=== PATIENT | male | born 1950 | race Caucasian/White ===

== ENCOUNTER 2017-06-24 06:03 | Observation (INO) | payer OTHER ==
[2017-06-24] MEDS ORDERED: Heparin 10,000 UNITS/1 ML VIAL ONE (06:30)
[2017-06-24] MEDS ORDERED: Midazolam HCl 2 mg/2 ml Vial ONE (07:09)
[2017-06-24] MEDS ORDERED: Fentanyl 100 MCG/2 ML VIAL ONE (07:09)
[2017-06-24] MEDS ORDERED: Nitroglycerin 100MG/250ML BOT 250 ML ONE (07:29)
[2017-06-24] MEDS ORDERED: Allopurinol 100 MG TAB PO SCH ×2 (09:00→21:00)
[2017-06-24] MEDS ORDERED: Allopurinol 300 MG TAB PO SCH (09:00)
[2017-06-24] MEDS ORDERED: Gabapentin 300 MG CAP PO SCH (09:00)
[2017-06-24] MEDS ORDERED: HYDROcodone/Acetaminophen 5/325 mg Tablet ONE (09:45)
[2017-06-24] MEDS ORDERED: Sodium Chloride 0.9% 1,000 ML IV SCH (13:00)
[2017-06-24 14:04] VITALS: BMI 34.1
[2017-06-24] MEDS: Gabapentin 300 MG CAP PO SCH ×3 (14:41→21:25)
[2017-06-24] MEDS: Furosemide 80 MG TAB PO SCH (14:41)
[2017-06-24] MEDS: Lisinopril 5 MG TAB PO SCH (14:41)
[2017-06-24] MEDS: Ubidecarenone 50 MG CAP PO SCH (14:42)
[2017-06-24] MEDS ORDERED: Iopamidol 370 76% 100 ML VIAL ONE (14:45)
[2017-06-24] MEDS: HYDROcodone/Acetaminophen 5/325 mg Tablet PO PRN (16:59)
[2017-06-24] MEDS ORDERED: Atorvastatin Calcium 20 MG TAB PO SCH (21:00)
--- NOTE | 2017-06-25 00:19 | CON ---
DATE OF CONSULTATION: 06/24/2017 REASON FOR CONSULTATION: Evaluation for coronary artery bypass surgery. PERTINENT HISTORY: The patient is a 66-year-old male, who underwent recent cardiology evaluation in preparation for left total knee replacement. Stress PET scan demonstrated inferior ischemia with ejection fraction of 54%. He underwent cardiac catheter[facility] 1 [facility], which demonstrated severe 2-vessel disease involving the RCA and circumflex systems. He was started on Plavix in preparation for potential intervention to the RCA today. Unfortunately, the RCA could not be intervened upon and the patient was subsequently referred for coronary artery bypass surgery. The patient has no symptoms at present. PAST MEDICAL HISTORY: 1. Hypertension. 2. Dyslipidemia. 3. Gout. 4. Bilateral knee degenerative joint disease. 5. Prostate cancer, status post both external radiation and cryotherapy. 6. Degenerative joint disease, lumbar spine. 7. Borderline diabetes. 8. A 5-cm infrarenal abdominal aortic aneurysm seen on CT scan of the abdomen and pelvis on 06/11/2017. PAST SURGICAL HISTORY: 1. Right inguinal hernia repair. 2. Left hydrocele repair. 3. Midline abdominal incision for prostatectomy, which was aborted in favor of the above treatment modalities. ALLERGIES: None. SOCIAL HISTORY: Nonsmoker. Daily beer drinker at 1-2 cans per day with weekend use of 1-2 six packs. CURRENT MEDICATIONS: Allopurinol, low dose Aspirin, Lipitor, Plavix which was stopped yesterday, Lasix, Gabapentin, Ibuprofen, Lisinopril and CoQ10. FAMILY HISTORY: Noncontributory for coronary artery disease. REVIEW OF SYSTEMS: No history of kidney or liver disease, stroke, or claudication. LABORATORY DATA AND X-RAY: Hemoglobin 13.8, platelet count 261,000, INR 1.1, and creatinine 0.83 all performed on 06/23/2017. Chest x-ray on 04/23/2017 showed a normal sized heart with no acute process. PHYSICAL EXAMINATION: VITAL SIGNS: Height 5 feet 10 inches. Weight 238-240 pounds. Blood pressure 110/63, heart rate 66, temperature 98.0. GENERAL: Well-developed, well-nourished male, in no acute distress. He is fully oriented. HEENT: Grossly unremarkable. NECK: Without JVD or adenopathy. LUNGS: Clear with good inspiratory effort. HEART: Regular rate and rhythm without murmur or rub. ABDOMEN: Soft and nontender, without palpable mass. EXTREMITIES: Without edema. VASCULAR: Palpable radial, femoral, popliteal, and ankle pulses bilaterally. No carotid bruits were appreciated. Abdominal aortic aneurysm is nonpalpable. NEUROLOGIC: No focal deficits. IMPRESSION: Poor prognostic stress test, severe 2-vessel coronary artery disease not amenable to catheter-based intervention, and preserved left ventricular function. RECOMMENDATIONS: Coronary artery bypass surgery to which the patient is in agreement following discussion with his referring adhesive bandage machine operator and myself. The indications, benefits, alternatives, and risks were explained in detail to the patient and his and grand children. All questions were answered. The patient agrees to proceed without reservations. Case will be scheduled for 06/30/2017, following an appropriate period of cessation from the Plavix. VICTOR MANUEL
[2017-06-25] MEDS: HYDROcodone/Acetaminophen 5/325 mg Tablet PO PRN ×2 (01:49→08:39)
[2017-06-25 04:53] LABS: #Eosinphils 0.5 thou/uL (0.0-0.7); #Monocytes 0.5 thou/uL (0.11-0.59); #Neutrophils 4.2 thou/uL (1.40-6.50); %Basophils 0.8 % (0.0-1.0); %Eosinophils 7.9 % (0.0-10.0); %Lymphocytes 15.9 % (21.0-51.0); %Monocytes 8.4 % (0.0-10.0); Hematocrit 39.3 % (42.0-52.0); Mean Platelet Volume 6.4 fL (7.4-10.4); Red Blood Cell (RBC) Count 3.96 mill/uL (4.70-6.10); White Blood Cell (WBC) Count 6.3 thou/uL (4.8-10.8)
[2017-06-25 05:06] LABS: ALT (SGPT) 11 U/L (8-55); AST (SGOT) 13 U/L (5-34); Alkaline Phosphatase 64 U/L (40-150); Anion Gap 10 mmol/L (10-20); BUN (Urea Nitrogen) 12 mg/dL (8.4-25.7); Bilirubin, Total 0.5 mg/dL (0.2-1.2); Calc. Creatinine Clearance 142 mL/min (70-130); Calcium 9.2 mg/dL (7.8-10.44); Carbon Dioxide 28 mmol/L (23-31); Chloride 102 mmol/L (98-107); Estimated GFR-MDRD Greater than 90; Globulin 2.6 g/dL (2.4-3.5); Protein, Total 6.1 g/dL (5.8-8.1)
[2017-06-25] MEDS: Ubidecarenone 50 MG CAP PO SCH (08:36)
[2017-06-25] MEDS: Gabapentin 300 MG CAP PO SCH ×2 (08:37→13:35)
[2017-06-25] MEDS: Lisinopril 5 MG TAB PO SCH (08:38)
[2017-06-25] MEDS: Furosemide 80 MG TAB PO SCH (08:38)
[2017-06-25] MEDS ORDERED: Allopurinol 300 MG TAB PO SCH (09:00)
[2017-06-25 13:26] VITALS: BP 135/78; TEMP 98.8
--- NOTE | 2017-06-25 13:28 | DIS ---
DATE OF ADMISSION: 06/24/2017 DATE OF DISCHARGE: 06/25/2017 DISCHARGING PHYSICIAN: Jh Frost M.D. PROCEDURES PERFORMED: 1. Left heart catheterization. 2. Percutaneous coronary to the right femoral approach. 3. Attempted PCI of the RCA unsuccessful. SUMMARY: Mr. Rizo was admitted yesterday after an attempted PCI of the RCA. We could not cross th e lesion. He has significant RCA and a significant circumflex lesion. He was admitted just for obs ervation. CT Surgery was consulted for consideration of bypass surgery and plan to do this next wee k on Wednesday to have appropriate time of Plavix before doing the surgery to reduce bleeding compli cations. He is doing well. Denies any chest pain, tightness or pressure. No shortness of breath, feels just fine. He has pretty much always felt well. We were going to discharge him home. His on ly medication change is he is going to be off of Plavix until next week. MEDICATION LIST: Unchanged except for being off of Plavix from now on. Over 30 minutes were spent at bedside.
--- NOTE | 2017-06-25 16:04 | EKG ---
Test Reason : POST CATH/PREOP CABG Blood Pressure : / mmHG Vent. Rate : 054 BPM Atrial Rate : 054 BPM P-R Int : 174 ms QRS Dur : 104 ms QT Int : 480 ms P-R-T Axes : 043 018 010 degrees QTc Int : 455 ms Sinus bradycardia Inferior infarct (cited on or before 24-JUN-2017) Abnormal ECG When compared with ECG of 24-JUN-2017 06:42, (Unconfirmed) No significant change was found Confirmed by DR. Freddy ASHFORD ([id number]) on 06/25/2017 4:04:31 PM Referred By: LARA Confirmed By:DR. Freddy ASHFORD
--- NOTE | 2017-06-25 16:04 | EKG ---
Test Reason : PREOP Blood Pressure : / mmHG Vent. Rate : 052 BPM Atrial Rate : 052 BPM P-R Int : 186 ms QRS Dur : 104 ms QT Int : 458 ms P-R-T Axes : 009 009 016 degrees QTc Int : 425 ms Sinus bradycardia Inferior infarct , age undetermined Abnormal ECG No previous ECGs available Confirmed by DR. Freddy ASHFORD ([id number]) on 06/25/2017 4:04:00 PM Referred By: LARA Confirmed By:DR. Freddy ASHFORD
--- NOTE | 2017-06-25 16:11 | EKG ---
Test Reason : Blood Pressure : / mmHG Vent. Rate : 049 BPM Atrial Rate : 049 BPM P-R Int : 182 ms QRS Dur : 098 ms QT Int : 464 ms P-R-T Axes : 008 008 025 degrees QTc Int : 419 ms Marked sinus bradycardia Inferior infarct (cited on or before 24-JUN-2017) Abnormal ECG When compared with ECG of 24-JUN-2017 09:10, (Unconfirmed) No significant change was found Confirmed by DR. Freddy ASHFORD ([id number]) on 06/25/2017 4:11:06 PM Referred By: LARA Confirmed By:DR. Freddy ASHFORD
== END 2017-06-25 14:00 | disposition home or self-care (01) ==
LOC: CCL 06:03 → 2SW 09:53
PROVIDERS: ADMIT Internal Medicine Cardiovascular Disease; ATTEND Internal Medicine Cardiovascular Disease
DX: Z01.818 Encounter for other preprocedural examination (principal); I10 Essential (primary) hypertension; E78.5 Hyperlipidemia, unspecified; M10.9 Gout, unspecified; M17.0 Bilateral primary osteoarthritis of knee; R73.03 Prediabetes; I71.4 Abdominal aortic aneurysm, without rupture; I25.10 Atherosclerotic heart disease of native coronary artery without angina pectoris; E66.9 Obesity, unspecified; M47.9 Spondylosis, unspecified; Z68.34 Body mass index [BMI] 34.0-34.9, adult; Z79.82 Long term (current) use of aspirin; Z79.899 Other long term (current) drug therapy; Z98.890 Other specified postprocedural states; Z85.46 Personal history of malignant neoplasm of prostate; Z92.3 Personal history of irradiation; Z92.21 Personal history of antineoplastic chemotherapy
CPT/HCPCS: 36415; 80053; 80061; 85025; 85027; 85347; 85610; 85730; 93005; 93010; 93454; 96360; 96361; 99152; 99153; C1769; C1887; G0378; J1644; J2250; J3010

== ENCOUNTER 2017-06-30 08:03 | Inpatient (IN) | payer OTHER ==
[2017-06-29 15:48] VITALS: BMI 34.4
[2017-06-30] MEDS ORDERED: CEFAZOLIN/Water 2 GM/20 ML SYRINGE ONE (09:18)
[2017-06-30] MEDS ORDERED: Midazolam HCl 5 mg/5 ml Vial ONE (09:23)
[2017-06-30] MEDS ORDERED: Dexmedetomidine 200 MCG/2 ML VIAL ONE (09:23)
[2017-06-30] MEDS ORDERED: Vecuronium 10 MG VIAL ONE ×3 (09:23→11:00)
[2017-06-30] MEDS ORDERED: Fentanyl 100 MCG/2 ML VIAL ONE (09:23)
[2017-06-30] MEDS ORDERED: Heparin 10,000 UNITS/1 ML VIAL 30,000 UNITS in Sodium Chloride 0.9% 1,000 ML FS SCH (09:30)
[2017-06-30] MEDS ORDERED: Lidocaine 2% PF 10 ML AMP (For Epidural Use) ONE ×2 (11:00)
[2017-06-30] MEDS ORDERED: Esmolol 100 MG/10 ML VIAL ONE (11:00)
[2017-06-30] MEDS ORDERED: PHENYLEPHRINE-NS 100 MCG/ML 10 ML SYRINGE ONE (11:00)
[2017-06-30] MEDS ORDERED: ePHEDrine/0.9% NaCl/PF SYRINGE 50 mg/10 ml ONE (11:00)
[2017-06-30] MEDS ORDERED: Albumin 5% 0 ML ONE (13:02)
[2017-06-30] MEDS ORDERED: Adenosine 6 MG/2 ML VIAL ONE (14:04)
[2017-06-30] MEDS ORDERED: Fentanyl 100 MCG/2 ML VIAL SLOW IVP PRN ×2 (16:02)
[2017-06-30] MEDS ORDERED: Mag-Al 1200 mg/1200 mg/30 ML UDCUP PO PRN (16:02)
[2017-06-30] MEDS ORDERED: Phenylephrine 10 MG/NS 250 ML 250 ML IVPB PRN (16:02)
[2017-06-30] MEDS ORDERED: Nitroglycerin 50 MG/250 ML BOT 250 ML IVPB PRN (16:02)
[2017-06-30] MEDS ORDERED: hydrALAZINE 20 MG/ML VIAL SLOW IVP PRN (16:02)
[2017-06-30] MEDS ORDERED: Bisacodyl 10 MG SUPP PR PRN (16:02)
[2017-06-30] MEDS ORDERED: DOPamine 400 MG/D5W 250 ML 250 ML IVPB PRN (16:02)
[2017-06-30] MEDS ORDERED: Promethazine HCl 25 MG/ML VIAL IM PRN (16:02)
[2017-06-30] MEDS ORDERED: Norepinephrine 8 MG/0.9% NS 250 ML IVPB PRN (16:02)
[2017-06-30] MEDS ORDERED: Bisacodyl 5 MG TAB PO PRN (16:02)
[2017-06-30] MEDS ORDERED: Acetaminophen 325 MG TAB PO PRN (16:02)
[2017-06-30] MEDS ORDERED: Post-Op Insulin Drip Protocol IVPB ONE (16:02)
[2017-06-30] MEDS ORDERED: Sodium Chloride 0.9% 1,000 ML IV SCH (16:02)
[2017-06-30] MEDS ORDERED: HYDROcodone/Acetaminophen 5/325 mg Tablet PO PRN (16:02)
[2017-06-30] MEDS ORDERED: Ondansetron HCl/PF 4 MG/2 ML Vial IVP PRN (16:02)
[2017-06-30] MEDS ORDERED: Guaifenesin DM 100-10/5 ML UDCUP PO PRN (16:02)
[2017-06-30] MEDS ORDERED: Dextrose 5% in Water 1,000 ML IV PRN (16:04)
[2017-06-30] MEDS ORDERED: Dextrose 50% Abboject 50 ML SYRINGE SLOW IVP PRN (16:04)
[2017-06-30] MEDS ORDERED: Insulin Regular 300 UNITS/3 ML VIAL SC PRN (16:04)
--- NOTE | 2017-06-30 16:07 | OP ---
PREOPERATIVE DIAGNOSES: Poor prognostic stress test, severe 2-vessel coronary artery disease not amenable to catheter-based intervention, and preserved left ventricular function. POSTOPERATIVE DIAGNOSES: Poor prognostic stress test, severe 2-vessel coronary artery disease not amenable to catheter-based intervention, and preserved left ventricular function. SURGEON: Colton Aguilar M.D. HAND COPER: [place]. SPONGE AND NEEDLE COUNTS: Correct. ANESTHESIA: General. OPERATION PERFORMED: Coronary artery bypass grafting x3 with left radial artery to posterior descending artery, reversed greater saphenous vein to first obtuse marginal, and reversed greater saphenous vein to second obtuse marginal. FINDINGS AT OPERATION: Cardiomegaly. No obvious LV scarring. Although small, both the second OM and PDA were able to be grafted down. At the sites of distal anastomosis the PDA was 1-1.25 mm, the first OM 1.75-2.0 mm, and the second OM 1 mm. Left radial artery and greater saphenous vein were adequate conduits. DESCRIPTION OF OPERATION: The patient was taken to the operating room. Following the induction of general endotracheal anesthesia, the patient was prepped and draped in the usual sterile fashion. Sternotomy was performed. Heart was inspected and it appeared that both the second OM and PDA could be grafted. Left radial artery was now harvested. Preoperative Chava's test well as intraoperative pulse oximetry demonstrated adequate supply to the left hand provided by the ulnar artery. Simultaneously, the right thigh greater saphenous vein was harvested using the endoscopic technique. Heparin dose was given and following assurance of an adequate ACT, the patient was cannulated in standard fashion. Cardiopulmonary bypass was instituted. Padded cross-clamp was applied with a single application and a single dose of cold blood cardioplegia given antegrade. The first vein graft was anastomosed in end-to- side fashion to the first OM using a continuous 7-0 Prolene suture. In similar fashion, the second vein graft was established to the second OM. Left radial artery was now anastomosed to the PDA just beyond its origin in end-to-side fashion using a 7-0 Prolene suture. The mid distal RCA was too diseased and heavily calcified to permit bypass. Systemic rewarming had begun. With the head down and gentle suction on the aortic vent, the aortic cross-clamp was removed. Cardioversion was not required. Partial clamp was placed on the ascending aorta with a single application and the 2 proximal vein graft anastomoses performed to punch holes using continuous 6-0 Prolene sutures. Unfortunately, the radial artery graft was not long enough to reach either of the vein graft hoods for proximal anastomosis. The proximal RCA was too calcified to permit anastomosis. The large acute marginal; however, was soft and the proximal radial artery anastomosis was performed to the acute marginal branch using a running 7-0 Prolene suture. The radial artery pedicle was tacked at both ends to the epicardium using 6-0 Prolene sutures. It had a nice lie. Partial clamp was had been removed with vein grafts deaired. Following full systemic rewarming, patient was weaned from cardiopulmonary bypass without difficulty and following heparin reversal with Protamine, the patient was decannulated. Amicar had been used in standard fashion through the case. No intraoperative blood products were required. Pericardium was not closed. Darrius drains x2 were positioned within the pericardial well. Sternum was reapproximated with interrupted #7 stainless steel wires. Linea alba and fascia were closed with running #1 Vicryl sutures followed by closure of the subcutaneous tissues with a running 2-0 Vicryl suture. Skin was closed with a 3 -0 Vicryl subcuticular stitch. Prior to closure, vancomycin paste had been applied to the sternal halves. Platelet-enriched and platelet-poor plasma had also been applied to the sternal wound. The patient was taken to the ICU. VICTOR MANUEL
[2017-06-30 16:09] LABS: #Eosinphils 0.1 thou/uL (0.0-0.7); #Lymphocytes 0.8 thou/uL (1.20-3.40); #Monocytes 0.9 thou/uL (0.11-0.59); #Neutrophils 11.4 thou/uL (1.40-6.50); %Eosinophils 0.8 % (0.0-10.0); %Lymphocytes 6.1 % (21.0-51.0); %Monocytes 6.7 % (0.0-10.0); Hematocrit 36.7 % (42.0-52.0); Mean Platelet Volume 6.3 fL (7.4-10.4); Red Blood Cell (RBC) Count 3.68 mill/uL (4.70-6.10); White Blood Cell (WBC) Count 13.2 thou/uL (4.8-10.8)
[2017-06-30 16:18] LABS: Oxyhemoglobin 92.4 % (94.0-97.0); Sodium 141 mmol/L (135-148)
[2017-06-30 16:18] LABS: Prothrombin Time 16.6 SEC (12.0-14.7)
[2017-06-30 16:19] LABS: Mechanical Tidal Volume 500 ml; Mode SIMV.PSV; Modified Allen's Test NOT DONE; Pressure Support 10 cmH2O; Vent YES
[2017-06-30 16:19] LABS: PTT 38.2 SEC (22.9-36.1)
[2017-06-30 16:30] LABS: Anion Gap 15 mmol/L (10-20); BUN (Urea Nitrogen) 14 mg/dL (8.4-25.7); Calc. Creatinine Clearance 165 mL/min (70-130); Calcium 8.3 mg/dL (7.8-10.44); Carbon Dioxide 20 mmol/L (23-31); Chloride 108 mmol/L (98-107); Estimated GFR-MDRD Greater than 90
[2017-06-30] MEDS: CEFAZOLIN/Water 2 GM/20 ML SYRINGE SLOW IVP SCH (16:39)
[2017-06-30] MEDS: Potassium Chloride 20 MEQ/100 ML PREMIX BAG IVPB PRN (16:43)
--- NOTE | 2017-06-30 17:52 | RAD ---
EXAM: ONE VIEW CHEST 06/30/17 HISTORY: Status post open heart surgery. COMPARISON: None. FINDINGS: Endotracheal tube, nasogastric tube, sternotomy wires, right sided central venous catheter, mediasti nal drainage catheter are noted. There is opacification of the left hemithorax likely representing parenchymal changes. Pneumomediast inum on the left heart border is noted. Probable atelectasis in the right lung base is noted. No pne umothorax. IMPRESSION: Postsurgical changes. POS: [facility]
[2017-06-30 17:56] LABS: Oxyhemoglobin 96.4 % (94.0-97.0); Sodium 141 mmol/L (135-148)
[2017-06-30] MEDS: Ketorolac Tromethamine 30 MG/ML VIAL IVP SCH (18:09)
[2017-06-30 18:10] LABS: Mode PSV; Pressure Support 5 cmH2O; Vent YES
[2017-06-30] MEDS: Gabapentin 300 MG CAP PO SCH (21:01)
[2017-06-30] MEDS: Allopurinol 100 MG TAB PO SCH (21:01)
[2017-06-30] MEDS: Famotidine/PF 20 mg/2ml Vial SLOW IVP SCH (21:03)
--- NOTE | 2017-06-30 21:49 | CON ---
DATE OF SERVICE: 06/30/2017 REASON FOR CONSULTATION: Status post bypass surgery. PRIMARY SALES TECHNICIAN: Dr. Chito Reyes M.D. HISTORY OF PRESENT ILLNESS: Mr. Rizo is a very pleasant 66-year-old white gentleman who comes to [facility] for planned bypass. He had the procedure done earlier today. He had a free radial to P DA, an SVG to OM, and an SVG to the second OM. He did well postoperatively. He is about to be extu bated on my evaluation, his blood pressure is sustaining without any pressor support or inotropic schneider pport. PAST MEDICAL HISTORY: 1. Mild aortic valve stenosis. 2. Hypertension. 3. Hyperlipidemia. 4. Coronary artery disease as above. 5. Gout. 6. Bilateral knees osteoarthritis. 7. Prostate cancer, status post radiation, cryotherapy. 8. Anemia. PAST SURGICAL HISTORY: 1. Hernia repair. 2. Back surgeon in 2000. 3. Knee surgery in 1975. OUTPATIENT MEDICATIONS: Include, 1. Aspirin 81 daily. 2. CoQ10. 3. Atorvastatin 40 mg half tablet a day. 4. Lasix 80 mg 1 a day. 5. Allopurinol 300 mg daily. 6. Hydrocodone and acetaminophen p.r.n. pain. 7. Gabapentin 300 mg 3 in the morning, 2 in the afternoon and 3 in the evening. 8. Allopurinol 100 mg daily. 9. Lisinopril 10 mg half tablet a day. 10. Ibuprofen p.r.n. pain. ALLERGIES: No known drug allergies. SOCIAL HISTORY: No alcohol, tobacco or drugs. FAMILY HISTORY: Noncontributory. REVIEW OF SYSTEMS: Unobtainable as the patient currently is intubated. PHYSICAL EXAMINATION: VITAL SIGNS: Temperature 97.5, pulse 66, respiratory rate 14, satting 98% on 40% FiO2, blood pressu re 111/64. GENERAL: Awake, alert but intubated. HEENT: Normocephalic. NECK: Supple. LUNGS: With mild coarse breath sounds anteriorly. CARDIOVASCULAR: S1, S2, no S3. There is a 2 component rub. ABDOMEN: Soft, positive bowel sounds. EXTREMITIES: 1+ edema, worse on the right leg. SKIN: Warm and dry. LABORATORY WORK: Reviewed. White count of 13, hemoglobin of 12, hematocrit of 36, platelet count o f 207. Coags were reviewed. ABG was reviewed. Chemistry with a sodium of 139, potassium 3.9, chlo ride of 108, carbon dioxide of 20, anion gap of 15, BUN of 14, creatinine 1.66, calcium of 8.3. Chest x-ray postoperatively shows post-surgical changes. No other acute issues. ASSESSMENT AND PLAN: 1. Coronary artery disease, status post coronary artery bypass grafting x3. 2. Hypertension, currently well controlled on no medications. PLAN: 1. Continue postoperative care. 2. Continue supportive care. 3. Extubation about to be done. 4. Aspirin and statin for life. 5. Beta harika and ARACELI inhibitor once blood pressure allows. 6. Dr. Reyes, his primary supervisor meter shop, will follow in the morning.
[2017-06-30 21:50] LABS: Hematocrit 35.4 % (42.0-52.0)
[2017-07-01] MEDS: CEFAZOLIN/Water 2 GM/20 ML SYRINGE SLOW IVP SCH ×2 (00:19→09:18)
[2017-07-01] MEDS: Ketorolac Tromethamine 30 MG/ML VIAL IVP SCH ×5 (00:19→23:06)
[2017-07-01 05:03] LABS: #Lymphocytes 0.9 thou/uL (1.20-3.40); #Monocytes 1.2 thou/uL (0.11-0.59); #Neutrophils 7.1 thou/uL (1.40-6.50); %Basophils 0.1 % (0.0-1.0); %Eosinophils 0.1 % (0.0-10.0); %Monocytes 12.5 % (0.0-10.0); Hematocrit 33.1 % (42.0-52.0); Mean Platelet Volume 6.8 fL (7.4-10.4); Red Blood Cell (RBC) Count 3.34 mill/uL (4.70-6.10); White Blood Cell (WBC) Count 9.2 thou/uL (4.8-10.8)
[2017-07-01 05:29] LABS: Anion Gap 14 mmol/L (10-20); BUN (Urea Nitrogen) 17 mg/dL (8.4-25.7); Calc. Creatinine Clearance 153 mL/min (70-130); Calcium 8.5 mg/dL (7.8-10.44); Carbon Dioxide 21 mmol/L (23-31); Chloride 110 mmol/L (98-107); Estimated GFR-MDRD Greater than 90
[2017-07-01] MEDS: Potassium Chloride 20 MEQ/100 ML PREMIX BAG IVPB PRN (05:45)
[2017-07-01] MEDS: HYDROcodone/Acetaminophen 5/325 mg Tablet PO PRN ×3 (05:45→14:20)
--- NOTE | 2017-07-01 08:10 | RAD ---
SINGLE VIEW OF THE CHEST: COMPARISON: None. HISTORY: Status post open heart surgery. FINDINGS: A single view of the chest shows a cardiomediastinal silhouette which is upper limits of normal in s ize. The patient is status post sternotomy. There is a right subclavian central venous catheter wi th the tip in the superior vena cava. A mediastinal drain is seen. No pneumothorax is seen. There is no evidence of consolidation, mass, or pleural effusion. IMPRESSION: No evidence of acute cardiopulmonary disease. POS: [facility]
[2017-07-01] MEDS ORDERED: Atorvastatin Calcium 20 MG TAB PO SCH (09:00)
[2017-07-01] MEDS ORDERED: Aspirin 325 MG TAB PO SCH (09:00)
[2017-07-01] MEDS ORDERED: Atorvastatin Calcium 40 MG TAB PO SCH (09:00)
[2017-07-01] MEDS: Gabapentin 300 MG CAP PO SCH ×3 (09:17→20:03)
[2017-07-01] MEDS: Allopurinol 300 MG TAB PO SCH (09:17)
[2017-07-01] MEDS: Famotidine/PF 20 mg/2ml Vial SLOW IVP SCH (09:18)
[2017-07-01] MEDS ORDERED: Insulin Detemir 100 UNITS/ML 6 UNITS in Pre-Filled Syringe 1 EACH SC SCH (09:45)
--- NOTE | 2017-07-01 12:24 | CON ---
DATE OF CONSULTATION: 07/01/2017 HISTORY OF PRESENT ILLNESS: Mr. Rizo is a very pleasant 66-year-old gentleman. He has undergone c oronary artery bypass grafting. Radial artery to his PDA, saphenous vein graft to his obtuse margin al, saphenous vein graft to his second obtuse marginal. He has done well postoperatively. He has b een extubated. He was evaluated sitting in the chair. I was consulted, because of his presence of the Critical Care Unit. PAST MEDICAL HISTORY: Remarkable for: 1. Aortic stenosis, not felt to need intervention. 2. Hypertension. 3. Lipid disorder. 4. History of osteoarthritis of his knees. 5. History of treatment for prostate cancer with radiation therapy. 6. History of herniorrhaphy. 7. History of back surgery. 8. History of knee surgery. CURRENT MEDICATIONS: He is on aspirin, Coenzyme Q10, atorvastatin, Lasix, allopurinol for gout, p.r .n. hydrocodone, gabapentin, lisinopril. ALLERGIES: No drug allergies. SOCIAL HISTORY: He is nonsmoker, nondrinker. FAMILY HISTORY: Negative for lung disease at an early age. REVIEW OF SYSTEMS: Otherwise negative. He says he really not having much in the way of chest disco mfort. PHYSICAL EXAMINATION: VITAL SIGNS: Blood pressure 126/69, heart rate 76, respiratory rate 22, oximetry is 100%. HEENT: Pupils are equal. Sclerae is anicteric. NECK: Supple, symmetrical carotids. LUNGS: Clear. HEART: Regular rhythm. S1 and S2 are normal. ABDOMEN: Soft and nontender, still has mediastinal tubes in place. EXTREMITIES: Without asymmetry. Intake and output is negative 22 mL. LABORATORY DATA AND IMAGING: White count 9.2, hemoglobin 11.2, platelets 242. Sodium 141, potassiu m 4, chloride 110, bicarbonate 21, BUN 17, creatinine 0.7. Chest radiograph is clear. IMPRESSION: Status post coronary artery bypass grafting, clinically stable. We are happy to follow while he is in the Critical Care Unit.
[2017-07-01] MEDS ORDERED: Furosemide 100 MG/10 ML VIAL SLOW IVP SCH (13:00)
[2017-07-01] MEDS ORDERED: diphenhydrAMINE 25 MG CAP PO PRN (16:41)
[2017-07-01] MEDS ORDERED: Promethazine HCl 25 MG/ML VIAL IM PRN (16:41)
[2017-07-01] MEDS ORDERED: Mag-Al 1200 mg/1200 mg/30 ML UDCUP PO PRN (16:41)
[2017-07-01] MEDS ORDERED: Bisacodyl 10 MG SUPP PR PRN (16:41)
[2017-07-01] MEDS ORDERED: HYDROcodone/Acetaminophen 5/325 mg Tablet PO PRN (16:41)
[2017-07-01] MEDS ORDERED: Acetaminophen 325 MG TAB PO PRN (16:41)
[2017-07-01] MEDS ORDERED: Mineral Oil ENEMA PR PRN (16:41)
[2017-07-01] MEDS ORDERED: Guaifenesin DM 100-10/5 ML UDCUP PO PRN (16:41)
[2017-07-01] MEDS ORDERED: Bisacodyl 5 MG TAB PO PRN (16:41)
[2017-07-01] MEDS ORDERED: Artificial Tear Sol 15 ML BOT EA EYE PRN (16:41)
[2017-07-01] MEDS ORDERED: Fentanyl 100 MCG/2 ML VIAL SLOW IVP PRN ×2 (16:41)
[2017-07-01] MEDS ORDERED: Milk Of Magnesia 30 ML UDCUP PO PRN (16:41)
[2017-07-01] MEDS ORDERED: Nitroglycerin 0.4 MG TAB 1 EACH SL PRN (16:41)
[2017-07-01] MEDS ORDERED: Ondansetron HCl/PF 4 MG/2 ML Vial IVP PRN (16:41)
[2017-07-01] MEDS ORDERED: Zolpidem Tartrate 5 MG TAB PO PRN (16:41)
[2017-07-01] MEDS: Metoprolol Tartrate 25 MG TAB PO SCH (20:03)
[2017-07-01] MEDS: Allopurinol 100 MG TAB PO SCH (20:03)
[2017-07-01] MEDS: Famotidine 20 MG TAB PO SCH (20:03)
[2017-07-01] MEDS ORDERED: Famotidine 20 MG TAB PO SCH (21:00)
[2017-07-02] MEDS: HYDROcodone/Acetaminophen 5/325 mg Tablet PO PRN (03:20)
[2017-07-02] MEDS: Ketorolac Tromethamine 30 MG/ML VIAL IVP SCH ×4 (05:45→23:59)
[2017-07-02] MEDS: Potassium Chloride 20 MEQ TAB PO SCH (08:55)
[2017-07-02] MEDS: Metoprolol Tartrate 25 MG TAB PO SCH ×2 (09:33→20:43)
[2017-07-02] MEDS: Allopurinol 300 MG TAB PO SCH (09:33)
[2017-07-02] MEDS: Gabapentin 300 MG CAP PO SCH ×3 (09:33→20:42)
[2017-07-02] MEDS: Famotidine 20 MG TAB PO SCH ×2 (09:33→20:42)
[2017-07-02] MEDS: Aspirin 325 mg Enteric Coated Tablet PO SCH (09:33)
[2017-07-02] MEDS: Furosemide 80 MG TAB PO SCH (09:34)
--- NOTE | 2017-07-02 10:35 | PRG ---
DATE OF SERVICE: 07/02/2017 SUBJECTIVE: Mr. Rizo did well overnight. He is having minimal discomfort. His mediastinal tubes are out. OBJECTIVE: VITAL SIGNS: He is afebrile. Heart rate 62, respiratory rate 17 and blood pressure 105/62. LUNGS: Clear. HEART: Regular rhythm. ABDOMEN: Soft. LABORATORY DATA: No new lab today. IMPRESSION AND PLAN: Status post coronary artery bypass grafting, clinically doing very well. He i s scheduled to move out of the Critical Care Unit today.
[2017-07-02] MEDS: Allopurinol 100 MG TAB PO SCH (20:42)
[2017-07-03] MEDS: Ketorolac Tromethamine 30 MG/ML VIAL IVP SCH ×3 (05:40→17:55)
[2017-07-03] MEDS: Potassium Chloride 20 MEQ TAB PO SCH (09:52)
[2017-07-03] MEDS: Aspirin 325 mg Enteric Coated Tablet PO SCH (09:53)
[2017-07-03] MEDS: Gabapentin 300 MG CAP PO SCH ×3 (09:53→21:06)
[2017-07-03] MEDS: Furosemide 80 MG TAB PO SCH (09:53)
[2017-07-03] MEDS: Metoprolol Tartrate 25 MG TAB PO SCH ×2 (09:53→21:07)
[2017-07-03] MEDS: Famotidine 20 MG TAB PO SCH ×2 (09:53→21:07)
[2017-07-03] MEDS: Allopurinol 300 MG TAB PO SCH (09:53)
[2017-07-03] MEDS ORDERED: Sodium Chloride 0.9% 0 ML ONE (15:51)
--- NOTE | 2017-07-03 16:17 | PDOC.CTH ---
<Tennille Carr - Last Filed: 07/03/17 16:14> Cardiology Progress Note - Subjective The pt was seen and examined. No overnight events. No cardiac complaints. He has been walking well without any difficulties. - Objective Vital Signs Temp Pulse Pulse Pulse Resp BP BP 07/03/17 12:16 86 66 143/72 H 137/91 H 07/03/17 12:05 98.7 F 63 14 07/03/17 08:45 91 67 160/77 H 121/78 07/03/17 08:00 98.1 F 67 16 BP Pulse Ox Pulse Ox Pulse Ox 07/03/17 12:16 98 94 L 07/03/17 12:05 126/74 97 07/03/17 08:45 100 98 07/03/17 08:00 132/68 98 Weight 244 lb 7 oz 07/02/17 07/03/17 07/04/17 06:59 06:59 06:59 Intake Total 2026.9 1325 Output Total 775 1725 Balance 1251.9 -400 - Physical Examination General/Neuro: alert & oriented x3 Neck: no JVD present Lungs: CTA Heart: RRR Abdomen: soft Extremities: other: (No edema; on TEDs) - Telemetry Telemetry Rhythm: SR 60s - Labs Result Diagrams: 07/01/17 03:40 07/01/17 03:40 - Assessment/Plan 1. CAD with S/p CABG x3 on 06/30/17 - stable with BBlocker, ARACELI, ASA, and Statin ; 2. HTN - stable; cont. monitor 3. Hyperlipidemia - on Statin med 4. Prostate Ca w/ radiation tx - 5. Anemia - stable; cont. monitor MAR reviewed Review of Systems - Review of Systems Constitutional: reports: no symptoms reported EENTM: reports: no symptoms reported Respiratory: reports: no symptoms reported Cardiac (ROS): reports: no symptoms reported ABD/GI: reports: no symptoms reported : reports: no symptoms reported Musculoskeletal: reports: no symptoms reported Skin: reports: no symptoms reported Neurological: reports: no symptoms reported <Maikel Ashton - Last Filed: 07/03/17 20:56> Cardiology Progress Note - Objective Vital Signs Temp Pulse Pulse Pulse Resp BP BP 07/03/17 16:10 97.7 F 65 18 07/03/17 12:16 86 66 143/72 H 137/91 H 07/03/17 12:05 98.7 F 63 14 BP Pulse Ox Pulse Ox Pulse Ox 07/03/17 16:10 121/74 95 07/03/17 12:16 98 94 L 07/03/17 12:05 126/74 97 Weight 244 lb 7 oz 07/02/17 07/03/17 07/04/17 06:59 06:59 06:59 Intake Total 2026.9 1325 720 Output Total 775 1725 800 Balance 1251.9 -400 -80 - Labs Result Diagrams: 07/01/17 03:40 07/01/17 03:40 - Assessment/Plan Pt. was seen and eval. by me. I agree with the A/p by the ACTION FINISHER. doing well post CABG. Continue present Tx.
--- NOTE | 2017-07-03 18:02 | PRG ---
DATE OF SERVICE: 07/03/2017 SERVICE: Pulmonary Medicine. INTERVAL HISTORY: The patient is doing abstaining from cardiovascular and respiratory standpoint. He currently denies any fevers, chills, nausea, vomiting or chest discomfort. He got up and walked up and down the hallway today. He had a little dyspnea that limited his activity, but otherwise he is not really close to getting back to his usual state of health. He has a little discomfort with d eep breaths and cough. That being said, the pain is not so severe that it is cutting of breath. He is using his incentive spirometer regularly. PHYSICAL EXAMINATION: VITAL SIGNS: Afebrile, pulse 63, blood pressure 126/74, respirations 14 and saturation 97% on room air. GENERAL: The patient is awake and alert in no apparent distress. LUNGS: Excellent air entry with no prolonged expiratory phase, wheezing, rhonchi or crackles. HEART: Normal rate, regular. ABDOMEN: Soft, nontender and nondistended. Bowel sounds positive. MUSCULOSKELETAL: No cyanosis or clubbing. No pitting in the bilateral lower extremities. NEUROLOGIC: Grossly nonfocal. ASSESSMENT: Coronary artery disease, status post coronary artery bypass graft. PLAN: There are no barriers to this patient leaving the hospital from a purely respiratory perspect valentine. Please call if he runs into any acute medical issues. Dr. Dasilva will resume care on Wednesday, i f the patient still remains in house.
[2017-07-03] MEDS: Allopurinol 100 MG TAB PO SCH (21:06)
[2017-07-04] MEDS: HYDROcodone/Acetaminophen 5/325 mg Tablet PO PRN (04:29)
[2017-07-04] MEDS: Gabapentin 300 MG CAP PO SCH (08:16)
[2017-07-04] MEDS: Metoprolol Tartrate 25 MG TAB PO SCH (08:16)
[2017-07-04] MEDS: Potassium Chloride 20 MEQ TAB PO SCH (08:16)
[2017-07-04] MEDS: Allopurinol 300 MG TAB PO SCH (08:17)
[2017-07-04] MEDS: Famotidine 20 MG TAB PO SCH (08:17)
[2017-07-04] MEDS: Aspirin 325 mg Enteric Coated Tablet PO SCH (08:17)
[2017-07-04] MEDS: Furosemide 80 MG TAB PO SCH (08:17)
[2017-07-04] MEDS ORDERED: Lisinopril 5 MG TAB PO SCH (09:00)
[2017-07-04 12:10] VITALS: BP 116/67; TEMP 98.9
--- NOTE | 2017-07-04 13:57 | PDOC.CTH ---
Cardiology Progress Note - Subjective The pt was seen and examined. No overnight events. No cardiac complaints. He already walked twice around the hospital. His outpt cardiac rehab will be at [place]. He and his stated they do not have any questions at this time - Objective Vital Signs Temp Pulse Pulse Pulse Resp BP BP 07/04/17 12:08 98.9 F 60 16 07/04/17 10:26 79 56 L 132/72 124/75 07/04/17 08:14 81 65 153/78 H 121/72 07/04/17 08:12 98.3 F 64 16 07/04/17 04:00 99.0 F 64 18 BP Pulse Ox Pulse Ox Pulse Ox 07/04/17 12:08 116/67 95 07/04/17 10:26 98 96 07/04/17 08:14 98 97 07/04/17 08:12 121/74 95 07/04/17 04:00 117/72 95 Weight 244 lb 9 oz 07/03/17 07/04/17 07/05/17 06:59 06:59 06:59 Intake Total 1325 1595 Output Total 1725 1700 Balance -400 -105 - Physical Examination General/Neuro: alert & oriented x3 Neck: no JVD present Lungs: CTA Heart: RRR Abdomen: soft Extremities: other: (No edemas; Incision sites are MEAGAN and dry) - Telemetry Telemetry Rhythm: SR 66 - Labs Result Diagrams: 07/01/17 03:40 07/01/17 03:40 - Assessment/Plan 1. CAD with S/p CABG x3 on 06/30/17 - stable with BBlocker, ARACELI, ASA, and Statin ; 2. HTN - stable; cont. monitor 3. Hyperlipidemia - on Statin med 4. Prostate Ca w/ radiation tx - 5. Anemia - stable; cont. monitor MAR reviewed *From Cardiac standpoint, the pt is stable to d/c home; the pt will f/u with Dr Reyes within 2-4 wks. Review of Systems - Review of Systems Constitutional: reports: no symptoms reported EENTM: reports: no symptoms reported Respiratory: reports: no symptoms reported Cardiac (ROS): reports: no symptoms reported ABD/GI: reports: no symptoms reported : reports: no symptoms reported Musculoskeletal: reports: no symptoms reported Skin: reports: no symptoms reported
--- NOTE | 2017-07-04 17:14 | DIS ---
REASON FOR ADMISSION: Coronary artery bypass surgery. CLINICAL RESUME: The patient is a 66-year-old male who underwent recent cardiology evaluation in preparation for left total knee replacement. Stress PET scan demonstrated inferior ischemia with ejection fraction of 54%. This prompted cardiac catheterization, which demonstrated severe 2-vessel disease involving the RCA and circumflex systems. Following unsuccessful PCI of the RCA , he was referred for coronary artery bypass surgery. On 06/30/2017, he underwent coronary artery bypass grafting x3 with left radial artery to PDA, reversed greater saphenous vein to first OM, and reversed greater saphenous vein to second OM. See operative report for details. He received no blood products. His postoperative course has been unremarkable and as of today, he was considered stable for discharge. Followup arranged in my office in 2 weeks or sooner p.r.n. DIET: Cardiac prudent. ACTIVITY: Light with restrictions on driving and heavy lifting at this time. DISCHARGE MEDICATIONS: He is to resume his complete home regimen with the following change. He is to increase his home enteric aspirin from 81 mg daily to 324 mg daily. NEW MEDICATIONS: Lopressor 25 mg b.i.d. and Camby 5/325 mg 1-2 q.4-6 hours p.r.n. MTDD
[2017-07-05 11:49] LABS: Oxyhemoglobin 97.7 % (94.0-97.0); Sodium 139 mmol/L (135-148)
[2017-07-05 11:49] LABS: Oxyhemoglobin 97.6 % (94.0-97.0); Sodium 139 mmol/L (135-148)
[2017-07-05 11:49] LABS: Base Excess -1.3 mEq/L (0 (+/- 2.5)); O2 Content (venous) 11.5 VOL% (12.5-17.5); pH (venous) 7.33 (7.35-7.45)
[2017-07-05 11:49] LABS: Oxyhemoglobin 97.5 % (94.0-97.0); Sodium 139 mmol/L (135-148)
[2017-07-05 11:50] LABS: Oxyhemoglobin 97.3 % (94.0-97.0); Sodium 141 mmol/L (135-148)
[2017-07-05 11:50] LABS: Oxyhemoglobin 96.9 % (94.0-97.0); Sodium 141 mmol/L (135-148)
[2017-07-05 11:51] LABS: Oxyhemoglobin 97.6 % (94.0-97.0); Sodium 140 mmol/L (135-148)
[2017-07-05 11:51] LABS: Oxyhemoglobin 97.8 % (94.0-97.0); Sodium 139 mmol/L (135-148)
[2017-07-05 12:41] LABS: Mode OR ABG; Vent YES
[2017-07-05 12:42] LABS: Mode OR ABG; Vent YES
[2017-07-05 12:43] LABS: Mode OR ABG; Vent YES
[2017-07-05 12:43] LABS: Mode OR ABG; Vent YES
[2017-07-05 12:44] LABS: Mode OR ABG; Vent YES
[2017-07-05 12:44] LABS: Mode OR ABG; Vent YES
[2017-07-05 12:45] LABS: Mode OR ABG; Vent YES
--- NOTE | 2017-07-07 21:50 | EKG ---
Test Reason : PREOP Blood Pressure : / mmHG Vent. Rate : 051 BPM Atrial Rate : 051 BPM P-R Int : 188 ms QRS Dur : 104 ms QT Int : 466 ms P-R-T Axes : 008 029 017 degrees QTc Int : 429 ms Sinus bradycardia Otherwise normal ECG When compared with ECG of 25-JUN-2017 07:11, No significant change was found Confirmed by LEILA GONZALEZ (2) on 07/07/2017 9:49:47 PM Referred By: JASON Confirmed By:LEILA GONZALEZ
== END 2017-07-04 13:48 | disposition home or self-care (01) | DRG 236 ==
LOC: CCU 08:03 → 2NO 07-02 18:18
PROVIDERS: ADMIT Thoracic Surgery (Cardiothoracic Vascular Surgery); ATTEND Thoracic Surgery (Cardiothoracic Vascular Surgery)
PROC: 02100AW Bypass Coronary Artery, One Artery from Aorta with Autologous Arterial Tissue, Open Approach (ICD-10-PCS; principal; 2017-06-30)
PROC: 021109W Bypass Coronary Artery, Two Arteries from Aorta with Autologous Venous Tissue, Open Approach (ICD-10-PCS; 2017-06-30)
PROC: 06BP4ZZ Excision of Right Saphenous Vein, Percutaneous Endoscopic Approach (ICD-10-PCS; 2017-06-30)
PROC: 03BC0ZZ Excision of Left Radial Artery, Open Approach (ICD-10-PCS; 2017-06-30)
PROC: 5A1221Z Performance of Cardiac Output, Continuous (ICD-10-PCS; 2017-06-30)
DX: I25.10 Atherosclerotic heart disease of native coronary artery without angina pectoris (principal); I10 Essential (primary) hypertension; E78.5 Hyperlipidemia, unspecified; D64.9 Anemia, unspecified; I35.0 Nonrheumatic aortic (valve) stenosis; M17.0 Bilateral primary osteoarthritis of knee; Z79.82 Long term (current) use of aspirin; M10.9 Gout, unspecified; Z85.46 Personal history of malignant neoplasm of prostate; Z92.3 Personal history of irradiation
CPT/HCPCS: 36416; 36430; 71010; 80048; 82805; 85025; 85610; 85730; 86850; 86900; 86901; 93005; 93010; 93798; 94002; 94150; A4216; J0153; J1642; J1644; J1815; J1885; J1940; J2001; J2250; J3010; J3480; J7050; P9016; P9045; S0028

== ENCOUNTER 2020-05-23 07:32 | Outpatient (CLI) | payer OTHER ==
[2020-05-23 14:21] LABS: Hemoglobin 14.7 g/dL (14.0-18.0); Mean Corpuscular HGB CONC 33.4 g/dL (32.0-36.0); Mean Corpuscular Hemoglobin 34.8 pg (27.0-31.0); Mean Platelet Volume 8.6 fL (7.4-10.4); Platelet Count 172 thou/uL (130-400); RBC Distribution Width 12.5 % (11.5-14.5)
[2020-05-23 14:25] LABS: Anion Gap 14 mmol/L (10-20); BUN (Urea Nitrogen) 21 mg/dL (8.4-25.7); Calc. Creatinine Clearance 0 mL/min (70-130); Calcium 9.2 mg/dL (7.8-10.44); Carbon Dioxide 26 mmol/L (23-31); Chloride 104 mmol/L (98-107); Estimated GFR-MDRD 90; Glucose 114 mg/dL (83-110); Potassium 4.7 mmol/L (3.5-5.1); Sodium 139 mmol/L (136-145)
[2020-05-24 11:15] LABS: SARS-CoV-2 MS2 Positive; SARS-CoV-2 N Gene Negative; SARS-CoV-2 S Gene Negative; SARS-CoV-2 by NAA Not Detected (NotDetected); SARS-CoV-2 orf1ab Negative
== END 2020-05-23 07:33 | disposition home or self-care (01) ==
LOC: LABBT 07:32
PROVIDERS: ATTEND Thoracic Surgery (Cardiothoracic Vascular Surgery)
DX: Z01.812 Encounter for preprocedural laboratory examination (principal); I71.4 Abdominal aortic aneurysm, without rupture; Z20.828 Contact with and (suspected) exposure to other viral communicable diseases
CPT/HCPCS: 80048; 85027; 87635; U0003

== ENCOUNTER 2020-05-23 10:15 | Inpatient (IN) | payer OTHER ==
[2020-05-23 12:14] VITALS: BMI 35.2
[2020-05-28] MEDS ORDERED: Fentanyl 250 MCG/5 ML VIAL ONE (06:43)
[2020-05-28] MEDS ORDERED: Midazolam HCl 2 mg/2 ml Vial ONE ×2 (06:43→08:11)
[2020-05-28] MEDS ORDERED: Heparin 10,000 UNITS/ 10 ML VIAL ONE (06:46)
[2020-05-28] MEDS ORDERED: Mannitol 12.5 GM/50 ML ONE (08:26)
[2020-05-28] MEDS ORDERED: Protamine Sulfate 50 MG/5 ML VIAL ONE (09:10)
[2020-05-28] MEDS ORDERED: Protamine Sulfate 250 MG/25 ML VIAL ONE (09:10)
--- NOTE | 2020-05-28 10:21 | OP ---
DATE OF PROCEDURE: 05/28/2020 PREOPERATIVE DIAGNOSIS: Abdominal aortic aneurysm. POSTOPERATIVE DIAGNOSIS: Abdominal aortic aneurysm. PROCEDURE PERFORMED: Endovascular aneurysm repair using a [employer]onic Endurant II device with main body left using a 32, 16, 166 and a right limb into the iliac of 16, 20, 93. CONTRAST: 67.5 mL. FLUOROSCOPY: 15 minutes and 30 seconds. [employer]AR[employer]ER: [place]. ANESTHESIA: General. ESTIMATED BLOOD LOSS: Less than 100. DESCRIPTION OF PROCEDURE: After adequate anesthesia had been obtained, the patient was prepped and draped. Ultrasound-guided puncture of the right and then left common femoral artery was performed, placing 6-Bahraini sheaths over Bentson guidewire. Following that, Perclose devices x2 were deployed on each side. Following that, 10-B[place]raini sheaths were placed. On the right side after exchanging the Bentson wire for a stiff wire, a 12-B[place]i sheath was advanced into the distal aorta. Following this, on the left side, Contra catheter was advanced in his aorta and angiograms x2 were obtained. Following this, the main body was advanced over a stiff guidewire and deployed just below the renal artery on the left. After this had been done, the gate was cannulated from the right side using the stiff wire and the Contra catheter. After this had been done, initially the 93 mm device was advanced and then it was felt that it might be short and a 124 device was then advanced. It was felt to be too long, so it was replaced with a 93 device, which was then deployed nicely. Following this, the main body was completely deployed on the left side. It was then removed over a wire, and a 16-Bahraini sheath was placed. Limbs and main body were then ballooned, and completion angiography showed a good result with no endoleak and no need to place balloon expandable stents within the distal aorta. Perclose devices were then deployed in the groin, protamine given, and the patient was to be taken to the recovery room. Job ID: [id number]
[2020-05-28] MEDS ORDERED: Nitroglycerin 50 MG/250 ML BOT 250 ML ONE (13:20)
[2020-05-28] MEDS ORDERED: Glycopyrrolate 0.2 MG/ML 5 ML SYRINGE ONE (13:37)
[2020-05-28] MEDS ORDERED: PROPOFOL 200 MG/20 ML VIAL ONE (13:37)
[2020-05-28] MEDS ORDERED: Ondansetron PF 4 MG/2 ML Vial ONE (13:37)
[2020-05-28] MEDS ORDERED: Calcium Chloride 1 GM/10 ML Abboject SYRINGE ONE (13:37)
[2020-05-28] MEDS ORDERED: Rocuronium Bromide 10 MG/ML (10ML VIAL) ONE (13:37)
[2020-05-28] MEDS ORDERED: Fentanyl 100 MCG/2 ML VIAL SLOW IVP PRN (14:16)
[2020-05-28] MEDS ORDERED: DOPamine 400 MG/D5W 250 ML 250 ML IVPB PRN (14:16)
[2020-05-28] MEDS ORDERED: Acetaminophen 325 MG TAB PO PRN (14:16)
[2020-05-28] MEDS ORDERED: Nitroglycerin 50 MG/250 ML BOT 250 ML IVPB PRN (14:16)
[2020-05-28] MEDS ORDERED: HYDROcodone/Acetaminophen 5/325 mg Tablet PO PRN (14:16)
[2020-05-28] MEDS ORDERED: Ondansetron PF 4 MG/2 ML Vial IVP PRN (14:16)
[2020-05-28] MEDS: Fentanyl 100 MCG/2 ML VIAL SLOW IVP PRN ×3 (14:42→23:38)
[2020-05-28] MEDS: Sodium Chloride 0.9% 1,000 ML IV SCH ×2 (14:44→23:43)
[2020-05-28] MEDS: Metoprolol Tartrate 25 MG TAB PO SCH (21:17)
[2020-05-28] MEDS: HYDROcodone/Acetaminophen 5/325 mg Tablet PO PRN (21:18)
[2020-05-28 21:50] VITALS: BP 139/38
[2020-05-29] MEDS: Sodium Chloride 0.9% 1,000 ML IV SCH (03:08)
[2020-05-29 05:35] LABS: #Eosinphils 0.1 thou/uL (0.0-0.7); #Lymphocytes 0.9 thou/uL (1.20-3.40); #Monocytes 0.8 thou/uL (0.11-0.59); #Neutrophils 6.1 thou/uL (1.40-6.50); %Basophils 0.2 % (0.0-1.0); %Lymphocytes 11.7 % (21.0-51.0); %Monocytes 10.6 % (0.0-10.0); %Neutrophils 76.5 % (42.0-75.0); Hemoglobin 12.1 g/dL (14.0-18.0); Mean Corpuscular HGB CONC 33.9 g/dL (32.0-36.0); Mean Corpuscular Hemoglobin 34.5 pg (27.0-31.0); Mean Platelet Volume 7.4 fL (7.4-10.4); Platelet Count 139 thou/uL (130-400); RBC Distribution Width 12.4 % (11.5-14.5); Red Blood Cell (RBC) Count 3.52 mill/uL (4.70-6.10); White Blood Cell (WBC) Count 7.9 thou/uL (4.8-10.8)
[2020-05-29 05:56] LABS: Anion Gap 11 mmol/L (10-20); BUN (Urea Nitrogen) 12 mg/dL (8.4-25.7); Calc. Creatinine Clearance 146 mL/min (70-130); Calcium 8.5 mg/dL (7.8-10.44); Carbon Dioxide 24 mmol/L (23-31); Chloride 105 mmol/L (98-107); Estimated GFR-MDRD Greater than 90; Glucose 107 mg/dL (83-110); Sodium 136 mmol/L (136-145)
[2020-05-29] MEDS: HYDROcodone/Acetaminophen 5/325 mg Tablet PO PRN (06:10)
[2020-05-29] MEDS ORDERED: Nystatin Powder 15 GM BOT TOP PRN (06:36)
--- NOTE | 2020-05-29 07:15 | PDOC.GSPN ---
Surgery Progress Note: Subj - Subjective Patient reports: no new complaints Narrative: Mr. Rizo is a 69 y/o male who is POD 1 from EVAR procedure. He is doing well this am, sitting at the edge of the bed without reports of pain or discomfort. Tolerating diet well. Denies nausea, vomiting, dizziness, or flatus. UOP: 945 Surgery Progress Note: Obj - Vital signs Vital signs: Vital Signs - Most Recent Temp Pulse Resp BP Pulse Ox 98.8 F 63 18 139/38 L 92 L 05/29/20 04:00 05/28/20 16:00 05/28/20 16:00 05/28/20 16:00 05/28/20 20:00 - Physical Exam ENT: normal mucosa Neck: no bruits Cardiovascular: regular rate and rhythm, no murmur Respiratory: clear to auscultation, normal expansion, normal respiratory effort Psychiatric: oriented to time, oriented to person, oriented to place Wound: healing well Surgery Progress Note: Results - Labs Result Diagrams: 05/29/20 05:00 05/29/20 05:00 Lab results: Laboratory Results - last 12 hr 05/29/20 05/29/20 05:00 05:00 WBC 7.9 RBC 3.52 L Hgb 12.1 L Hct 35.8 L MCV 102.0 H MCH 34.5 H MCHC 33.9 RDW 12.4 Plt Count 139 MPV 7.4 Neutrophils % 76.5 H Lymphocytes % 11.7 L Monocytes % 10.6 H Eosinophils % 1.0 Basophils % 0.2 Neutrophils # 6.1 Lymphocytes # 0.9 L Monocytes # 0.8 H Eosinophils # 0.1 Basophils # 0.0 Sodium 136 Potassium 4.0 Chloride 105 Carbon Dioxide 24 Anion Gap 11 BUN 12 Creatinine 0.73 Estimated GFR (MDRD) Greater than 90 Glucose 107 Calcium 8.5 Surgery Progress Note: A/P - Plan Plan: Mr. Rizo is a 69 y/o male who is POD 1 from EVAR procedure who is recovering well. -Guerra discontinued this AM. Will monitor for spontaneous voiding before discharge. -Monitor for pain -Continue ambulation as tolerated -Likely discharge later today
[2020-05-29 08:59] VITALS: TEMP 98.9
[2020-05-29] MEDS ORDERED: Atorvastatin Calcium 20 MG TAB PO SCH (09:00)
[2020-05-29] MEDS ORDERED: Furosemide 80 MG TAB PO SCH (09:00)
[2020-05-29] MEDS ORDERED: Lisinopril 5 MG TAB PO SCH (09:00)
[2020-05-29] MEDS ORDERED: Aspirin 325 mg Enteric Coated Tablet PO SCH (09:00)
[2020-05-29] MEDS ORDERED: FLU VACC QS2020-21(65YR UP)/PF 240 MCG/0.7 ML SYRINGE IM ONE (09:00)
[2020-05-29] MEDS: Metoprolol Tartrate 25 MG TAB PO SCH (09:52)
--- NOTE | 2020-05-30 11:24 | DIS ---
DATE OF ADMISSION: 05/28/2020 DATE OF DISCHARGE: 05/29/2020 The patient was admitted yesterday for an endovascular aneurysm repair, which was carried out with an Endurant system using 2 pieces, including a 32, 16, 166 and a 16, 20, 93, with the main body left. His postoperative course was uneventful. His Guerra catheter was removed this morning, and he will be discharged later today assuming he is able to void. His medications will be resumed, and I have attempted to prescribe Mycostatin powder for some candidal infection in his groin region; however, there is no pharmacy listed in his hospital records for this to be distributed, and there are no prescriptions available as these are currently locked up in the ICU pharmacy. In any event, he will be discharged today and follow up with me in 2 weeks. Discharge and followup instructions have been given with particular attention to taking care of the groin area. Job ID: [id number]
[2020-05-31 19:13] LABS: Cardiac Risk 3.1 (Less than 4.5)
== END 2020-05-29 11:50 | disposition home or self-care (01) | DRG 269 ==
LOC: SURG A 05-28 05:34 → EDSTATUS 05-28 10:15 → CCU 05-28 13:50
PROVIDERS: ADMIT Thoracic Surgery (Cardiothoracic Vascular Surgery); ATTEND Thoracic Surgery (Cardiothoracic Vascular Surgery)
PROC: 04V03DZ Restriction of Abdominal Aorta with Intraluminal Device, Percutaneous Approach (ICD-10-PCS; principal; 2020-05-28)
DX: I71.4 Abdominal aortic aneurysm, without rupture (principal); I25.10 Atherosclerotic heart disease of native coronary artery without angina pectoris; E78.2 Mixed hyperlipidemia; I10 Essential (primary) hypertension; M51.36 Other intervertebral disc degeneration, lumbar region; Z98.890 Other specified postprocedural states; Z96.653 Presence of artificial knee joint, bilateral; Z79.899 Other long term (current) drug therapy; Z79.82 Long term (current) use of aspirin; Z95.1 Presence of aortocoronary bypass graft; Z85.46 Personal history of malignant neoplasm of prostate; Z90.79 Acquired absence of other genital organ(s)
CPT/HCPCS: 76000; 80048; 80061; 85025; 86850; 86900; 86901; 90471; 90662; C1726; C1760; C1894; G0008; J0690; J1642; J1644; J2150; J2250; J2405; J2704; J2720; J3010

== ENCOUNTER 2020-12-18 12:43 | Outpatient (CLI) | payer OTHER ==
[~2020-12-18 12:43] MED LIST: Iopamidol-370 76% 500 ML 1 ML ONE
== END 2020-12-18 12:44 | disposition home or self-care (01) ==
LOC: BICCT 12:43
PROVIDERS: ATTEND Thoracic Surgery (Cardiothoracic Vascular Surgery)
DX: I71.4 Abdominal aortic aneurysm, without rupture (principal); K42.9 Umbilical hernia without obstruction or gangrene
CPT/HCPCS: 74174; 82565; Q9967

== ENCOUNTER 2024-07-03 22:14 | Inpatient (IN) | payer MEDICARE, OTHER ==
[2024-07-03 23:06] VITALS: BMI 27.6
[2024-07-03] MEDS ORDERED: Ondansetron ODT 4 MG TAB PO PRN (23:57)
[2024-07-03] MEDS ORDERED: Ondansetron PF 4 MG/2 ML Vial IVP PRN (23:57)
[2024-07-03] MEDS ORDERED: Acetaminophen 650 MG Suppository PR PRN (23:57)
[2024-07-04 01:25] LABS: #Basophils 0.03 10x3/uL (0.0-0.2); %Basophils 0.5 % (0.0-1.0); %Eosinophils 2.5 % (0.0-10.0); %Lymphocytes 20.9 % (21.0-51.0); %Monocytes 10.9 % (0.0-10.0); %Neutrophils 64.8 % (42.0-75.0); Hematocrit 35.5 % (42.0-52.0); Hemoglobin 12.4 g/dL (14.0-18.0); Mean Corpuscular HGB CONC 34.9 g/dL (32.0-36.0); Mean Corpuscular Hemoglobin 34.3 pg (27.0-31.0); Mean Corpuscular Volume 98.1 fL (78.0-98.0); Platelet Count 173 10x3/uL (130-400); RBC Distribution Width 14.6 % (11.5-14.5); Red Blood Cell (RBC) Count 3.62 mill/uL (4.70-6.10)
[2024-07-04] MEDS ORDERED: Nitroglycerin 0.4 MG TAB (25 Tab Bottle) SL PRN (01:30)
[2024-07-04 01:50] LABS: Anion Gap 13 mmol/L (10-20); BUN (Urea Nitrogen) 16 mg/dL (8.4-25.7); Calc. Creatinine Clearance 96 mL/min (70-130); Calcium 8.7 mg/dL (7.8-10.44); Carbon Dioxide 25 mmol/L (23-31); Chloride 100 mmol/L (98-107); Estimated GFR 92; Glucose 93 mg/dL (83-110); Potassium 3.5 mmol/L (3.5-5.1); Sodium 134 mmol/L (136-145)
[2024-07-04 01:54] LABS: Troponin I 0.057 ng/mL (< 0.028)
[2024-07-04 05:01] LABS: Troponin I 0.046 ng/mL (< 0.028)
[2024-07-04] MEDS: Gabapentin 400 MG CAP PO SCH (06:29)
[2024-07-04] MEDS: Acetaminophen 325 MG TAB PO SCH (06:29)
[2024-07-04] MEDS: Icosapent Ethyl 1 GM CAPSULE PO SCH (09:06)
[2024-07-04] MEDS: Furosemide 80 MG TAB PO SCH (09:06)
[2024-07-04] MEDS: Lisinopril 10 MG TAB PO SCH (09:06)
[2024-07-04] MEDS: Aspirin Chewable 81 MG TAB PO SCH (09:06)
[2024-07-04] MEDS: Atorvastatin Calcium 20 MG TAB PO SCH (09:06)
[2024-07-04] MEDS: Allopurinol 300 MG TAB PO SCH (09:06)
[2024-07-04] MEDS: Famotidine 20 MG TAB PO SCH (09:07)
[2024-07-04] MEDS: Famotidine/PF 20 mg/2ml Vial SLOW IVP SCH (09:07)
[2024-07-04] MEDS: Hydrochlorothiazide 25 MG TAB PO SCH (09:08)
[2024-07-04] MEDS: Isosorbide Mononitrate 30 MG ER.TAB PO SCH (09:15)
[2024-07-05 04:25] LABS: #Basophils 0.04 10x3/uL (0.0-0.2); %Basophils 0.7 % (0.0-1.0); %Eosinophils 5.2 % (0.0-10.0); %Neutrophils 62.9 % (42.0-75.0); Hematocrit 33.6 % (42.0-52.0); Hemoglobin 11.6 g/dL (14.0-18.0); Mean Corpuscular HGB CONC 34.5 g/dL (32.0-36.0); Mean Corpuscular Hemoglobin 34.3 pg (27.0-31.0); Mean Corpuscular Volume 99.4 fL (78.0-98.0); Mean Platelet Volume 9.1 fL (7.4-10.4); Platelet Count 177 10x3/uL (130-400); RBC Distribution Width 14.6 % (11.5-14.5); Red Blood Cell (RBC) Count 3.38 mill/uL (4.70-6.10)
[2024-07-05 04:31] LABS: Anion Gap 10 mmol/L (10-20); BUN (Urea Nitrogen) 15 mg/dL (8.4-25.7); Calc. Creatinine Clearance 98 mL/min (70-130); Calcium 8.4 mg/dL (7.8-10.44); Carbon Dioxide 27 mmol/L (23-31); Chloride 98 mmol/L (98-107); Estimated GFR 92; Glucose 89 mg/dL (83-110); Potassium 3.3 mmol/L (3.5-5.1); Sodium 132 mmol/L (136-145)
[2024-07-05] MEDS ORDERED: Regadenoson 0.4 MG/5 ML SYRINGE ONE (10:16)
[2024-07-05] MEDS: Potassium Chloride 20 MEQ TAB PO SCH (13:42)
[2024-07-05 15:41] VITALS: BP 123/67; TEMP 98
== END 2024-07-05 18:30 | disposition home or self-care (01) | DRG 313 ==
LOC: 2NO 22:14
PROVIDERS: ADMIT Student in an Organized Health Care Education/Training Program; ATTEND Internal Medicine
DX: R07.89 Other chest pain (principal); E87.1 Hypo-osmolality and hyponatremia; I25.10 Atherosclerotic heart disease of native coronary artery without angina pectoris; I11.0 Hypertensive heart disease with heart failure; I50.9 Heart failure, unspecified; R79.89 Other specified abnormal findings of blood chemistry; E87.6 Hypokalemia; E78.5 Hyperlipidemia, unspecified; D64.9 Anemia, unspecified; Z96.653 Presence of artificial knee joint, bilateral; Z95.1 Presence of aortocoronary bypass graft
CPT/HCPCS: 36415; 78452; 80048; 84484; 85025; 93017; A9500; J2785